=== PATIENT | male | born 1995 | race Caucasian/White ===

== ENCOUNTER 2018-07-06 20:05 | Emergency (ER) | payer BC ==
[~2018-07-06] VITALS: Ht 175.3 cm; Wt 88.7 kg
[2018-07-06 20:08] VITALS: Ht 175.3 cm; Wt 88.7 kg
--- NOTE | 2018-07-06 20:17 | EMERGENCY ROOM VISIT NOTE ---
History Report prepared by Junaid: Roman Rivera Under the Supervision of: Dr. Del Doan M.D. First contact with patient: 20:11 Chief Complaint: THROAT PAIN/INJURY Stated Complaint: THROAT PAIN, TONISILS INFLAMMED History of Present Illness The patient is a 23 year old male who presents to the Emergency Room with complaints of throat pain that is throbbing that started today after he was drinking and smoking vapor last night. He reports his tonsils are swollen and are in pain. The patient notes he sometimes gets pus-pockets on his tonsils when he eats. He reports no history of mononucleosis. He reports mild cough. He denies any fever or shortness of breath. Source of History: patient Onset: Today Position: throat Quality: other (Throbbing) Modifying Factors (Worsening): eating Associated Symptoms: + cough, + neck pain, No fevers, No SOB Review of Systems See HPI for pertinent positives and negatives. A total of ten systems were reviewed and were otherwise negative. Past Medical & Surgical Medical Problems: (1) No Known Active Medical Problems Family History Patient reports no known family medical history. Social History Smoking Status: Current Every Day Smoker Occupation Status: [employer] student Current/Historical Medications Scheduled Aspirin (Aspirin Ec), 81 MG PO DAILY Metoprolol Succ (Toprol Xl) (Toprol-Xl), 12.5-25 MG PO DAILY Allergies Coded Allergies: Penicillins (Verified Allergy, Intermediate, Rash, 07/06/18) Physical Exam Vital Signs Date Time Temp Pulse Resp B/P (MAP) Pulse Ox O2 Delivery O2 Flow Rate FiO2 07/06/18 21:32 37.6 104 16 150/107 98 Room Air 07/06/18 20:40 97 Room Air 07/06/18 20:08 37.1 118 18 156/77 97 Room Air Physical Exam Physical Exam GENERAL: He is oriented to person, place, and time. He appears well-developed and well-nourished. He does not appear distressed. HENT: Exam performed. Head: Normocephalic and atraumatic. Right Ear: External ear normal. No mastoid tenderness. Left Ear: External ear normal. No mastoid tenderness. Mouth/Throat: The oropharynx is clear and moist. No trismus in the jaw. No dental abscesses or uvula swelling. Right sided pharyngeal exudates. EYES: Conjunctivae and EOM are normal. Pupils are equal, round, and reactive to light. Right eye exhibits no discharge. Left eye exhibits no discharge. No scleral icterus. NECK: Normal range of motion. Neck supple. No JVD present. No spinous process tenderness present. No carotid bruit present. No rigidity. No tracheal deviation and normal range of motion present. No Brudzinski's sign and no Kernig 's sign noted. CV: Normal rate, regular rhythm, normal heart sounds and intact distal pulses. There is no peripheral edema. Palpable radial pulses bue. PULM/CHEST: Effort normal and breath sounds normal. No respiratory distress. No stridor. He has no wheezes. He has no rales. Chest Wall: He exhibits no tenderness. ABD: The abdomen is soft. Bowel sounds are normal. He has no distension. No mass is present. There is no tenderness. There is no rebound, no guarding, no Sanchez's sign and no tenderness at McBurney's point. Rovsig negative. MUSC/SKEL: Normal range of motion. There is no peripheral edema, tenderness or deformity. LYMPH: Right sided cervical lymphadenopathy. NEURO: He is alert and oriented to person, place, and time. He has normal strength. No cranial nerve deficit or sensory deficit. Coordination and gait normal. GCS eye subscore is 4. GCS verbal subscore is 5. GCS motor subscore is 6. Cerebellar tests wnl. SKIN: Skin is warm and dry. He is not diaphoretic. PSYCH: He has a normal mood and affect. Behavior is normal. Judgment and thought content normal. Medical Decision & Procedures Laboratory Results Test 07/06/18 20:39 [facility] NEG (NEG) Laboratory results reviewed by [place] ED Course 2013: The patient was evaluated in room B12B. A complete history and physical exam was performed. 213: Vital signs stable. Rapid strep and mono negative. No evidence of MORNING SHOW HOST or RPA on physical exam. No meningeal signs. Patient will follow up with PCP. DISCHARGE - Plan of care discussed with patient and questions answered. The patient was given both verbal and printed discharge instructions. The patient verbalized understanding and ability to comply. The patient is to seek outpatient follow up as noted in the discharge instructions. The patient verbalized understanding and ability to comply. The patient is discharged in stable condition. The patient was instructed to return for worsening symptoms. Medical Decision Vital signs stable. Rapid strep and mono negative. No evidence of MORNING SHOW HOST or RPA on physical exam. No meningeal signs. Patient will follow up with PCP. DISCHARGE - Plan of care discussed with patient and questions answered. The patient was given both verbal and printed discharge instructions. The patient verbalized understanding and ability to comply. The patient is to seek outpatient follow up as noted in the discharge instructions. The patient verbalized understanding and ability to comply. The patient is discharged in stable condition. The patient was instructed to return for worsening symptoms. Medication Reconcilliation Current Medication List: was personally reviewed by me Blood Pressure Screening Patient's blood pressure: Elevated blood pressure Blood pressure disposition: Elevated BP felt to be situational Impression Primary Impression: Pharyngitis Scribe Attestation The scribe's documentation has been prepared under my direction and personally reviewed by me in its entirety. I confirm that the note above accurately reflects all work, treatment, procedures, and medical decision making performed by me. The chart was completed utilizing [employer] voice recognition software. Grammatical errors, random word insertions, pronoun errors, and incomplete sentences are an occasional consequence of this system due to software limitations, ambient noise, and hardware issues. Any formal questions or concerns about the content, text, or information contained within the body of this dictation should be directly addressed to the physician for clarification. Departure Information Dispostion Home / Self-Care Referrals No Doctor, Assigned (PCP) Forms HOME CARE DOCUMENTATION FORM, IMPORTANT VISIT INFORMATION, WORK / SCHOOL INSTRUCTIONS Patient Instructions My [facility] Problem Qualifiers Primary Impression: Pharyngitis Pharyngitis/tonsillitis etiology: unspecified etiology Qualified Codes: J02.9 - Acute pharyngitis, unspecified
[2018-07-06] MEDS ORDERED: ASPI81TA28 PO (21:23)
[2018-07-06] MEDS ORDERED: METO25TA3 PO (21:23)
[2018-07-06 21:32] VITALS: BP 150/107; PULSE 104; TEMP 37.6; O2SAT 98
== END 2018-07-06 21:42 | disposition home or self-care (01) ==
LOC: C.EDB 20:07
DX: J02.9 Acute pharyngitis, unspecified (principal); M54.2 Cervicalgia; Z79.82 Long term (current) use of aspirin; Z79.899 Other long term (current) drug therapy; Z88.0 Allergy status to penicillin; F17.200 Nicotine dependence, unspecified, uncomplicated